=== PATIENT | female | born 1960 | race Two or more races ===

== ENCOUNTER 2022-07-02 06:00 | Inpatient (IN) | payer OTHER ==
[~2022-07-02] VITALS: Ht 157.5 cm; Wt 104.8 kg
[~2022-07-02 06:00] MED LIST: ABILIFY10 MG PO; CLONAZEPAM2 M1 PO; COGENTIN PO; CREST PO; EFFEXOR XR150 MG PO; REMERON30 MG PO
== END 2022-07-03 10:45 | disposition home or self-care (01) | DRG 581 ==
LOC: CIR.AMB 06:00 → SURG 19:10
PROVIDERS: ADMIT Surgery; ATTEND Surgery
PROC: 0HTT0ZZ Resection of Right Breast, Open Approach (ICD-10-PCS; 2022-07-02)
PROC: 07B50ZZ Excision of Right Axillary Lymphatic, Open Approach (ICD-10-PCS; principal; 2022-07-02 07:00)
DX: D05.11 Intraductal carcinoma in situ of right breast (principal); Z20.822 Contact with and (suspected) exposure to COVID-19

== ENCOUNTER 2022-09-01 11:18 | Outpatient (CLI) | payer OTHER ==
[~2022-09-01 11:18] MED LIST changes: +HEPARIN
== END 2022-09-01 11:22 | disposition home or self-care (01) ==
LOC: LAB 11:18
DX: Z20.822 Contact with and (suspected) exposure to COVID-19 (principal)

== ENCOUNTER 2022-09-02 06:43 | Inpatient (IN) | payer OTHER ==
[~2022-09-02] VITALS: Ht 157.5 cm; Wt 104.3 kg
[2022-09-03] MEDS ORDERED: PERCOCET 5-3251 EACH PO (09:52)
[2022-09-03] MEDS ORDERED: 3-DAY VAGINAL C21 GM TOP (09:59)
== END 2022-09-03 13:25 | disposition home or self-care (01) | DRG 743 ==
LOC: CIR.AMB 06:43 → O/R 16:51 → SURH 18:51
PROVIDERS: ADMIT Obstetrics & Gynecology; ATTEND Obstetrics & Gynecology
PROC: 0UT04ZZ Resection of Right Ovary, Percutaneous Endoscopic Approach (ICD-10-PCS; 2022-09-02)
PROC: 0DNU4ZZ Release Omentum, Percutaneous Endoscopic Approach (ICD-10-PCS; 2022-09-02)
PROC: 0DN84ZZ Release Small Intestine, Percutaneous Endoscopic Approach (ICD-10-PCS; 2022-09-02)
PROC: 0UB14ZZ Excision of Left Ovary, Percutaneous Endoscopic Approach (ICD-10-PCS; 2022-09-02)
PROC: 0UT74ZZ Resection of Bilateral Fallopian Tubes, Percutaneous Endoscopic Approach (ICD-10-PCS; principal; 2022-09-02 11:15)
DX: D27.0 Benign neoplasm of right ovary (principal); D27.1 Benign neoplasm of left ovary; Z20.822 Contact with and (suspected) exposure to COVID-19; N73.6 Female pelvic peritoneal adhesions (postinfective)